=== PATIENT | female | born 1985 | race African-American/Black ===

== ENCOUNTER 2017-09-20 21:14 | Inpatient (IN) | payer OTHER ==
[~2017-09-20] VITALS: Ht 162.6 cm; Wt 87.1 kg
[2017-09-20] MEDS ORDERED: MECLIZINE HCL 12.5 MG TABLET. PO ONE (22:15)
[2017-09-20] MEDS ORDERED: IV NORMAL SALINE 1000ML BAG 1,000 ML IV ONE (22:15)
[2017-09-20] MEDS ORDERED: ONDANSETRON PF 4 MG/2 ML VIAL. IV ONE (22:15)
[2017-09-20 22:21] LABS: BASO % 0 % (0-3); EOS % 1 % (0-3); HEMATOCRIT 38.9 % (36.0-47.0); HEMOGLOBIN 12.7 g/dL (12.0-15.5); LYMPH # 3.1 x10^3/uL (1.0-4.8); LYMPH % 32 % (24-48); MEAN CORPUSCULAR HEMOGLOBIN 25 pg (25-35); MEAN CORPUSCULAR HGB CONC 33 g/dL (31-37); MEAN CORPUSCULAR VOLUME 76 fL (79-100); MONO % 11 % (0-9); NEUT % 57 % (31-73); PLATELET COUNT 306 x10^3/uL (140-400); RED BLOOD COUNT 5.12 x10^6/uL (3.50-5.40); RED CELL DISTRIBUTION WIDTH 13.5 % (11.5-14.5); WHITE BLOOD COUNT 9.8 x10^3/uL (4.0-11.0)
[2017-09-20 22:21] LABS: BILIRUBIN,URINE NEGATIVE (NEG); GLUCOSE,URINE NEGATIVE (NEG); NITRITE,URINE NEGATIVE (NEG); PROTEIN,URINE NEGATIVE (NEG-TRACE)
[2017-09-20 22:26] LABS: BACTERIA,URINE FEW /HPF (0-FEW); RBC,URINE 0 /HPF (0-2); SQUAMOUS EPITHELIAL CELL,UR MOD /LPF; WBC,URINE OCC /HPF (0-4)
--- NOTE | 2017-09-20 22:29 | PHYS DOC ---
Past Medical History Past Medical History: Anxiety, Depression, Schizophrenia Past Surgical History: Alcohol Use: Occasionally Drug Use: None Adult General Chief Complaint Chief Complaint: DIZZY/LIGHT HEADED HPI HPI Patient is a 32 year old F who presents with dizziness for the past 2 days. Patient states that the room has been spinning for the past 2 days and is episodic. Patient states that it's worse when she goes from a sitting to a standing position. Patient states it's better when she lays down. Patient is never had symptoms of this before. Patient denies any fevers. Patient denies any headaches. Patient appears of nausea with no vomiting. Patient denies any chest pain or shortness of breath. Patient has no other complaints. Review of Systems Review of Systems GEN: Denies fevers, chills, sweats HEENT: Denies blurred vision, sore throat CV: Denies chest pain RESP: Denies shortness of air, cough GI: Denies n/v/d NEURO: Dizziness MSK: Denies weakness, joint pain/swelling Current Medications Current Medications Current Medications Medications (Trade) Dose Ordered Sig/Caitlin Start Time Stop Time Status Last Admin Dose Admin Meclizine HCl (Antivert) 25 mg 1X ONCE 09/20/17 22:15 09/20/17 22:16 DC 09/20/17 22:25 25 MG Ondansetron HCl (Zofran) 4 mg 1X ONCE 09/20/17 22:15 09/20/17 22:16 DC 09/20/17 22:25 4 MG Sodium Chloride 1,000 ml @ 1,000 mls/hr 1X ONCE 09/20/17 22:15 09/20/17 23:14 09/20/17 22:25 1,000 MLS/HR Allergies Allergies Allergies Coded Allergies Type Severity Reaction Last Updated Verified amoxicillin Allergy Intermediate Unknown 09/28/15 Yes Physical Exam Physical Exam GEN.: No apparent distress. Alert and oriented. HEENT: Head is normocephalic, atraumatic NECK: Supple. LUNGS: CTAB. HEART: RRR, S1, S2 present. Peripheral pulses intact ABDOMEN: Soft, nontender. Positive bowel sounds. EXTREMITIES: Without any cyanosis. NEUROLOGIC: Normal speech, normal tone, cranial nerves II through XII are grossly intact without any focal neurological deficits PSYCHIATRIC: Normal affect, normal mood. SKIN: No ulcerations Current Patient Data Vital Signs Vital Signs Date Time Temp Pulse Resp B/P (MAP) Pulse Ox O2 Delivery O2 Flow Rate FiO2 09/20/17 21:35 98.4 91 18 126/72 (90) 99 Room Air 98.4 Lab Values Laboratory Tests Test 09/20/17 21:24 09/20/17 21:30 09/20/17 21:38 Urine Collection Type Unknown Urine Color Yellow Urine Clarity Clear Urine pH 6.0 Urine Specific [place] >=1.030 Urine Protein Negative mg/dL (NEG-TRACE) Urine Glucose (UA) Negative mg/dL (NEG) Urine Ketones (Stick) Negative mg/dL (NEG) Urine Blood Negative (NEG) Urine Nitrite Negative (NEG) Urine Bilirubin Negative (NEG) Urine Urobilinogen Dipstick 1.0 mg/dL (0.2 mg/dL) Urine Leukocyte Esterase Negative (NEG) Urine RBC 0 /HPF (0-2) Urine WBC Occ /HPF (0-4) Urine Squamous Epithelial Cells Mod /LPF Urine Bacteria Few /HPF (0-FEW) Urine Mucus Marked /LPF POC Urine HCG, Qualitative Hcg negative (Negative) White Blood Count 9.8 x10^3/uL (4.0-11.0) Red Blood Count 5.12 x10^6/uL (3.50-5.40) Hemoglobin 12.7 g/dL (12.0-15.5) Hematocrit 38.9 % (36.0-47.0) Mean Corpuscular Volume 76 fL (79-100) L Mean Corpuscular Hemoglobin 25 pg (25-35) Mean Corpuscular Hemoglobin Concent 33 g/dL (31-37) Red Cell Distribution Width 13.5 % (11.5-14.5) Platelet Count 306 x10^3/uL (140-400) Neutrophils (%) (Auto) 57 % (31-73) Lymphocytes (%) (Auto) 32 % (24-48) Monocytes (%) (Auto) 11 % (0-9) H Eosinophils (%) (Auto) 1 % (0-3) Basophils (%) (Auto) 0 % (0-3) Neutrophils # (Auto) 5.6 x10^3uL (1.8-7.7) Lymphocytes # (Auto) 3.1 x10^3/uL (1.0-4.8) Monocytes # (Auto) 1.0 x10^3/uL (0.0-1.1) Eosinophils # (Auto) 0.1 x10^3/uL (0.0-0.7) Basophils # (Auto) 0.0 x10^3/uL (0.0-0.2) Sodium Level 141 mmol/L (136-145) Potassium Level 3.7 mmol/L (3.5-5.1) Chloride Level 103 mmol/L (98-107) Carbon Dioxide Level 28 mmol/L (21-32) Anion Gap 10 (6-14) Blood Urea Nitrogen 11 mg/dL (7-20) Creatinine 0.7 mg/dL (0.6-1.0) Estimated GFR (Cockcroft-Gault) 117.3 BUN/Creatinine Ratio 16 (6-20) Glucose Level 109 mg/dL (70-99) H Calcium Level 9.0 mg/dL (8.5-10.1) Total Bilirubin 0.3 mg/dL (0.2-1.0) Aspartate Amino Transferase (AST) 25 U/L (15-37) Alanine Aminotransferase (ALT) 47 U/L (14-59) Alkaline Phosphatase 83 U/L (46-116) Troponin I Quantitative < 0.017 ng/mL (0.000-0.055) Total Protein 7.9 g/dL (6.4-8.2) Albumin 3.5 g/dL (3.4-5.0) Albumin/Globulin Ratio 0.8 (1.0-1.7) L Laboratory Tests 09/20/17 21:38 Laboratory Tests 09/20/17 21:38 EKG EKG 2134: EKG shows normal sinus rhythm rate of 93 no STEMI[] Radiology/Procedures Radiology/Procedures CT scan of the head without contrast: Impression: No evidence of acute intracranial abnormality. Consider outpatient MR brain for further workup, particularly if symptoms persist. [] Course & Med Decision Making Course & Med Decision Making Pertinent Labs and Imaging studies reviewed. (See chart for details) ED course: Patient was seen and examined emergency room CBC, CMP, UA, EKG, CT scan of the head without contrast were ordered 2300: Attempted to ambulate patient down the zafar and she had difficulty walking secondary to severe dizziness 2308: Discussed CC/HP/PMH with Dr. Keyes and recommends admit MDM: After reviewing the chart, CC/HPI/PMH, physical exam, [lab results], [ radiological results], I do not believe the patient having an acute CVA however has concerns that she has persistent dizziness as difficulty walking therefore will admit for further evaluation and management. [] [] Dragon Disclaimer Dragon Disclaimer This electronic medical record was generated, in whole or in part, using a voice recognition dictation system. Departure Departure Impression: Primary Impression: Dizziness Disposition: ADMITTED INPATIENT Admitting Physician: Other (Dr. Keyes) Condition: STABLE Referrals: ARAMIS MENDOZA MD (PCP) DESIRE JENSEN DO Sep 20, 2017 22:29
[2017-09-20 22:30] LABS: CREATININE 0.7 mg/dL (0.6-1.0); GFR 117.3; POTASSIUM 3.7 mmol/L (3.5-5.1)
[2017-09-20 22:36] LABS: ALBUMIN 3.5 g/dL (3.4-5.0); ALBUMIN/GLOBULIN RATIO 0.8 (1.0-1.7); TOTAL BILIRUBIN 0.3 mg/dL (0.2-1.0); TOTAL PROTEIN 7.9 g/dL (6.4-8.2)
--- NOTE | 2017-09-20 22:47 | RAD ---
CT of the head without contrast History:dizziness Technique: Standard noncontrast images are obtained. Exposure: One or more of the following individualized dose reduction techniques were utilized for this examination: 1. Automated exposure control 2. Adjustment of the mA and/or kV according to patient size 3. Use of iterative reconstruction technique. Comparison: None Findings: Posterior fossa is unremarkable. No evidence of acute intracranial hemorrhage, mass effect, midline shift or abnormal extra-axial fluid collection. Conley-white matter distinction is intact. Ventricles unremarkable and symmetric Visualized orbits are unremarkable. Visualized paranasal sinuses and mastoids are clear. No acute calvarial abnormality Impression: No evidence of acute intracranial abnormality. Consider outpatient MR brain for further workup, particularly if symptoms persist. Electronically signed by: Kevin Wilkins MD (09/20/2017 10:43 PM) [facility]
[2017-09-21] MEDS ORDERED: MECLIZINE HCL 12.5 MG TABLET. PO PRN (00:15)
[2017-09-21] MEDS ORDERED: ONDANSETRON PF 4 MG/2 ML VIAL. IV PRN (00:15)
[2017-09-21 00:30] VITALS: BP 109/66
--- NOTE | 2017-09-21 00:47 | HP ---
ADMIT DATE: 09/21/2017 CHIEF COMPLAINT: Dizziness. HISTORY OF PRESENT ILLNESS: The patient is a 32-year-old -[place] woman with past medical history of anxiety, depression, schizophrenia, who presented with dizziness for the past 2 days. She relates that she woke up on Friday morning, and when she got up from the lying position to sitting, she became very dizzy. She relates this feels like she is going on a [id number], room spinning around her. This actually affects her ability to walk as well. She denies any headaches, any ear aches, stuffy nose, sore throat, or other URI symptoms. The dizziness was so severe that she actually has nausea without any vomiting, and is unable to walk. In the Emergency Room, workup was essentially negative, but she continues to be very symptomatic and is therefore admitted. PAST MEDICAL HISTORY: Anxiety, depression, schizophrenia, fibromyalgia. FAMILY HISTORY: Heart disease on paternal grandmother. Distant relatives with diabetes as well. SOCIAL HISTORY: Lives with her children. Quit smoking, no toxic habits. ALLERGIES: AMOXICILLIN. MEDICATIONS: MAR reconciled with home medications. REVIEW OF SYSTEMS: Positive as per HPI. Rest of organ system review is negative. PHYSICAL EXAMINATION: VITAL SIGNS: Show a blood pressure of 126/72, heart rate of 91, respiratory rate at 18. She is afebrile. GENERAL: This is an obese 32-year-old -[place] woman, alert and oriented, no acute distress. LUNGS: Clear. HEART: Has regular rate and rhythm. ABDOMEN: Has positive bowel sounds, soft, nontender. EXTREMITIES: Show no edema. NEUROLOGIC: Shows no abnormality in Cranial nerves 2-12. Muscle strength is 5/5 throughout. LABORATORY DATA: CBC with a WBC of 9.8, hemoglobin 12.7, platelets of 306, MCV is 76. Chemistries with a BUN and creatinine of 11 and 0.7, normal electrolytes, normal LFTs. Urine, no sign of infection. IMAGING: CT of head with no evidence of acute intracranial abnormality. ASSESSMENT AND PLAN: The patient is a 32-year-old woman with signs consistent with benign positional vertigo. This apparently affects her moving from lying to upright position. We will continue meclizine for the time being. We will obtain neurological consult. May need a tilt table procedure. We will continue all her home medications for the time being. SUSSY BORGES MD DR: Collins JOB#: [id number] / [id number] VINAY
[2017-09-21 03:39] VITALS: BP 103/65
[2017-09-21 07:00] VITALS: BP 107/59
[2017-09-21] MEDS ORDERED: oxyCODONE/APAP 5/325 1 TAB TABLET PO PRN (08:45)
[2017-09-21 10:58] VITALS: BP 117/75
[2017-09-21] MEDS ORDERED: POLY17PO29 PO (11:49)
[2017-09-21] MEDS ORDERED: SERT100T PO (11:51)
--- NOTE | 2017-09-21 12:10 | EKG ---
[facility] [address] [place] [address] Test Date: 2017-09-20 Test Time: 21:34:49 Pat Name: CHAD TURNER Department: Room: Gender: F [employer] Supervisor: : 1985 Requested By: DESIRE JENSEN Order Number: [id number] Reading MD: Measurements Intervals [place] Rate: 93 P: 45 MT: 178 QRS: -6 QRSD: 86 T: 25 QT: 360 QTc: 450 Interpretive Statements SINUS RHYTHM LEFTWARD AXIS NON SPECIFIC T ABNORMALITY RI6.01 Unconfirmed report No previous ECG available for comparison
[2017-09-21] MEDS ORDERED: MECL12.52 PO (12:58)
[2017-09-21] MEDS ORDERED: SERTRALINE 50 MG TABLET. PO SCH (13:00)
[2017-09-21] MEDS ORDERED: POLYETHYLENE GLYCOL 3350 17 GM PACKET. PO SCH (13:00)
[2017-09-21 14:22] VITALS: BP 114/72
--- NOTE | 2017-09-21 15:26 | PDOC3 ---
Discharge Summary Visit Information Date of Admission: Sep 20, 2017 Date of Discharge: Sep 21, 2017 Admitting Diagnosis: dizzy Final Diagnosis Benign positional paroxysmal vertigo depression obesity dizzy, positional Problems Medical Problems: (1) Dizziness Status: Acute Brief Hospital Course Allergies Allergies Coded Allergies Type Severity Reaction Last Updated Verified amoxicillin Allergy Intermediate Unknown 09/28/15 Yes Vital Signs Vital Signs Date Time Temp Pulse Resp B/P (MAP) Pulse Ox O2 Delivery O2 Flow Rate FiO2 09/21/17 14:22 98.2 79 19 114/72 (86) 96 Room Air 98.2 Lab Results Laboratory Tests Test 09/20/17 21:24 09/20/17 21:30 09/20/17 21:38 Urine Collection Type Unknown Urine Color Yellow Urine Clarity Clear Urine pH 6.0 Urine Specific [place] >=1.030 Urine Protein Negative mg/dL (NEG-TRACE) Urine Glucose (UA) Negative mg/dL (NEG) Urine Ketones (Stick) Negative mg/dL (NEG) Urine Blood Negative (NEG) Urine Nitrite Negative (NEG) Urine Bilirubin Negative (NEG) Urine Urobilinogen Dipstick 1.0 mg/dL (0.2 mg/dL) Urine Leukocyte Esterase Negative (NEG) Urine RBC 0 /HPF (0-2) Urine WBC Occ /HPF (0-4) Urine Squamous Epithelial Cells Mod /LPF Urine Bacteria Few /HPF (0-FEW) Urine Mucus Marked /LPF Bedside Urine HCG, Qualitative Hcg negative (Negative) White Blood Count 9.8 x10^3/uL (4.0-11.0) Red Blood Count 5.12 x10^6/uL (3.50-5.40) Hemoglobin 12.7 g/dL (12.0-15.5) Hematocrit 38.9 % (36.0-47.0) Mean Corpuscular Volume 76 fL (79-100) Mean Corpuscular Hemoglobin 25 pg (25-35) Mean Corpuscular Hemoglobin Concent 33 g/dL (31-37) Red Cell Distribution Width 13.5 % (11.5-14.5) Platelet Count 306 x10^3/uL (140-400) Neutrophils (%) (Auto) 57 % (31-73) Lymphocytes (%) (Auto) 32 % (24-48) Monocytes (%) (Auto) 11 % (0-9) Eosinophils (%) (Auto) 1 % (0-3) Basophils (%) (Auto) 0 % (0-3) Neutrophils # (Auto) 5.6 x10^3uL (1.8-7.7) Lymphocytes # (Auto) 3.1 x10^3/uL (1.0-4.8) Monocytes # (Auto) 1.0 x10^3/uL (0.0-1.1) Eosinophils # (Auto) 0.1 x10^3/uL (0.0-0.7) Basophils # (Auto) 0.0 x10^3/uL (0.0-0.2) Sodium Level 141 mmol/L (136-145) Potassium Level 3.7 mmol/L (3.5-5.1) Chloride Level 103 mmol/L (98-107) Carbon Dioxide Level 28 mmol/L (21-32) Anion Gap 10 (6-14) Blood Urea Nitrogen 11 mg/dL (7-20) Creatinine 0.7 mg/dL (0.6-1.0) Estimated GFR (Cockcroft-Gault) 117.3 BUN/Creatinine Ratio 16 (6-20) Glucose Level 109 mg/dL (70-99) Calcium Level 9.0 mg/dL (8.5-10.1) Total Bilirubin 0.3 mg/dL (0.2-1.0) Aspartate Amino Transf (AST/SGOT) 25 U/L (15-37) Alanine Aminotransferase (ALT/SGPT) 47 U/L (14-59) Alkaline Phosphatase 83 U/L (46-116) Troponin I Quantitative < 0.017 ng/mL (0.000-0.055) Total Protein 7.9 g/dL (6.4-8.2) Albumin 3.5 g/dL (3.4-5.0) Albumin/Globulin Ratio 0.8 (1.0-1.7) Laboratory Tests Test 09/20/17 21:24 09/20/17 21:30 09/20/17 21:38 Urine Collection Type Unknown Urine Color Yellow Urine Clarity Clear Urine pH 6.0 Urine Specific [place] >=1.030 Urine Protein Negative mg/dL (NEG-TRACE) Urine Glucose (UA) Negative mg/dL (NEG) Urine Ketones (Stick) Negative mg/dL (NEG) Urine Blood Negative (NEG) Urine Nitrite Negative (NEG) Urine Bilirubin Negative (NEG) Urine Urobilinogen Dipstick 1.0 mg/dL (0.2 mg/dL) Urine Leukocyte Esterase Negative (NEG) Urine RBC 0 /HPF (0-2) Urine WBC Occ /HPF (0-4) Urine Squamous Epithelial Cells Mod /LPF Urine Bacteria Few /HPF (0-FEW) Urine Mucus Marked /LPF Bedside Urine HCG, Qualitative Hcg negative (Negative) White Blood Count 9.8 x10^3/uL (4.0-11.0) Red Blood Count 5.12 x10^6/uL (3.50-5.40) Hemoglobin 12.7 g/dL (12.0-15.5) Hematocrit 38.9 % (36.0-47.0) Mean Corpuscular Volume 76 fL (79-100) Mean Corpuscular Hemoglobin 25 pg (25-35) Mean Corpuscular Hemoglobin Concent 33 g/dL (31-37) Red Cell Distribution Width 13.5 % (11.5-14.5) Platelet Count 306 x10^3/uL (140-400) Neutrophils (%) (Auto) 57 % (31-73) Lymphocytes (%) (Auto) 32 % (24-48) Monocytes (%) (Auto) 11 % (0-9) Eosinophils (%) (Auto) 1 % (0-3) Basophils (%) (Auto) 0 % (0-3) Neutrophils # (Auto) 5.6 x10^3uL (1.8-7.7) Lymphocytes # (Auto) 3.1 x10^3/uL (1.0-4.8) Monocytes # (Auto) 1.0 x10^3/uL (0.0-1.1) Eosinophils # (Auto) 0.1 x10^3/uL (0.0-0.7) Basophils # (Auto) 0.0 x10^3/uL (0.0-0.2) Sodium Level 141 mmol/L (136-145) Potassium Level 3.7 mmol/L (3.5-5.1) Chloride Level 103 mmol/L (98-107) Carbon Dioxide Level 28 mmol/L (21-32) Anion Gap 10 (6-14) Blood Urea Nitrogen 11 mg/dL (7-20) Creatinine 0.7 mg/dL (0.6-1.0) Estimated GFR (Cockcroft-Gault) 117.3 BUN/Creatinine Ratio 16 (6-20) Glucose Level 109 mg/dL (70-99) Calcium Level 9.0 mg/dL (8.5-10.1) Total Bilirubin 0.3 mg/dL (0.2-1.0) Aspartate Amino Transf (AST/SGOT) 25 U/L (15-37) Alanine Aminotransferase (ALT/SGPT) 47 U/L (14-59) Alkaline Phosphatase 83 U/L (46-116) Troponin I Quantitative < 0.017 ng/mL (0.000-0.055) Total Protein 7.9 g/dL (6.4-8.2) Albumin 3.5 g/dL (3.4-5.0) Albumin/Globulin Ratio 0.8 (1.0-1.7) Brief Hospital Course Ms. Murray is a 32 old female, admit due to dizzy, worse when lying on right side, better in AM DC to primary care, Meclizine PRN education on maneuvers if recurs provided by me, handout given Discharge Information Condition at Discharge: Improved Follow Up: Weeks Disposition/Orders: D/C to Home Scheduled Polyethylene Glycol 3350 (Miralax), 1 PACKET PO DAILY, (Reported) Sertraline Hcl (Zoloft), 1 TAB PO DAILY, (Reported) Scheduled PRN Meclizine Hcl (Meclizine Hcl), 12.5 MG PO PRN TID PRN for vertigo Patient Instructions Patient Instructions > 30 min GENEVIEVE DAVIS MD Sep 21, 2017 15:26
[2017-09-21] MEDS ORDERED: ACETAMINOPHEN 325 MG TABLET. PO PRN (15:30)
== END 2017-09-21 16:00 | disposition home or self-care (01) | DRG 149 ==
LOC: ER 21:14 → 6 SOUTH 23:05
PROVIDERS: ADMIT Internal Medicine Hematology & Oncology; ATTEND Internal Medicine Hematology & Oncology
DX: H81.10 Benign paroxysmal vertigo, unspecified ear (principal); F20.9 Schizophrenia, unspecified; E66.9 Obesity, unspecified; Z68.33 Body mass index [BMI] 33.0-33.9, adult; F32.9 Major depressive disorder, single episode, unspecified; M79.7 Fibromyalgia; Z83.3 Family history of diabetes mellitus; F41.9 Anxiety disorder, unspecified; Z88.1 Allergy status to other antibiotic agents; Z87.891 Personal history of nicotine dependence
CPT/HCPCS: 36415; 70450; 80053; 81001; 81025; 84484; 85025; 93005; 96361; 96374; J2405; J7030; J8597; 99285-25

== ENCOUNTER 2021-12-03 18:13 | Emergency (ER) | payer MEDICAID, OTHER ==
[~2021-12-03] VITALS: Ht 162.6 cm; Wt 106.8 kg
[~2021-12-03 18:13] MED LIST: MECL12.582 PO; POLY17PO29 PO; SERT100T PO
--- NOTE | 2021-12-04 00:28 | RAD ---
EXAM: AP View of the chest DATE: 12/03/2021 12:04 AM INDICATION: Reason: fever / Spl. Instructions: / History: COMPARISON: No Prior FINDINGS: The heart is not enlarged. Mediastinal and hilar contours are normal. No focal parenchymal airspace opacity. No pleural effusion or pneumothorax. IMPRESSION: 1. No radiographic evidence for acute cardiopulmonary process. Electronically signed by: José Mazariegos MD (12/04/2021 12:26 AM) [facility]
--- NOTE | 2021-12-04 00:33 | PHYS DOC ---
Past Medical History Past Medical History: Anxiety, Depression, Hypertension, Schizophrenia Additional Past Medical Histor: sleep apena, PTSD (INESSA GOLDSTEIN GIS SCIENTIST) Past Surgical History: (INESSA GOLDSTEIN GIS SCIENTIST) Smoking Status: Never Smoker Alcohol Use: None Drug Use: None (INESSA GOLDSTEIN GIS SCIENTIST) General Adult EDM: Chief Complaint: COUGH HPI: HPI: Patient is a 36 year old female with history of depression, anxiety, hypertension, who presents to the ED today complaining of sore throat and nonproductive cough, symptoms began yesterday. Patient denies any fever. Denies any difficulty swallowing. Reports receiving [employer] vaccine last dose in May 2021 (INESSA GOLDSTEIN GIS SCIENTIST) Review of Systems: Review of Systems: Constitutional: Low thank you Eyes: Denies change in visual acuity. [] HENT: Reports sore throat Respiratory: Reports cough, denies shortness of breath Cardiovascular: Denies chest pain or edema. [] GI: Denies abdominal pain, nausea, vomiting, bloody stools or diarrhea. [] : Denies dysuria. [] Musculoskeletal: Denies back pain or joint pain. [] Integument: Denies rash. [] Neurologic: Denies headache, focal weakness or sensory changes. [] Psychiatric: Denies depression or anxiety. [] (INESSA GOLDSTEIN ) Heart Score: C/O Chest Pain: N/A Risk Factors: Risk Factors: DM, Current or recent (<one month) smoker, HTN, HLP, family history of CAD, obesity. Risk Scores: Score 0 - 3: 2.5% MACE over next 6 weeks - Discharge Home Score 4 - 6: 20.3% MACE over next 6 weeks - Admit for Clinical Observation Score 7 - 10: 72.7% MACE over next 6 weeks - Early Invasive Strategies (INESSA GOLDSTEIN ) Current Medications: Current Medications Medications (Trade) Dose Ordered Sig/Caitlin Start Time Stop Time Status Last Admin Dose Admin Acetaminophen (Tylenol) 1,000 mg 1X ONCE 12/04/21 00:30 12/04/21 00:31 Clonidine HCl (Catapres) 0.2 mg 1X ONCE 12/04/21 00:30 12/04/21 00:31 Dexamethasone Sodium Phosphate (Decadron) 10 mg 1X ONCE 12/04/21 00:30 1/4/22 00:31 Lidocaine HCl (Viscous Lidocaine) 15 ml 1X ONCE 12/04/21 00:30 12/04/21 00:31 (INESSA GOLDSTEIN GIS SCIENTIST) Allergies: Allergies: Allergies Coded Allergies Type Severity Reaction Last Updated Verified amoxicillin Allergy Intermediate 12/03/21 Yes (INESSA GOLDSTEIN GIS SCIENTIST) Physical Exam: PE: Constitutional: Well developed, well nourished, no acute distress, non-toxic appearance. [] HENT: Normocephalic, atraumatic, bilateral external ears normal, oropharynx moist, no oral exudates, nose normal. Airway is open. Eyes: PERRLA, EOMI, conjunctiva normal, no discharge. [] Neck: Normal range of motion, no tenderness, supple, no stridor. [] Cardiovascular:Heart rate regular rhythm, no murmur [] Lungs & Thorax: Bilateral breath sounds clear to auscultation [] Abdomen: Bowel sounds normal, soft, no tenderness, no masses, no pulsatile ma sses. [] Skin: Warm, dry, no erythema, no rash. [] Back: No tenderness, no CVA tenderness. [] Extremities: No tenderness, no cyanosis, no clubbing, ROM intact, no edema. [] Neurologic: Alert and oriented X 3, normal motor function, normal sensory function, no focal deficits noted. [] Psychologic: Affect normal, judgement normal, mood normal. [] (INESSA GOLDSTEIN GIS SCIENTIST) Current Patient Data: Vital Signs: Vital Signs Date Time Temp Pulse Resp B/P (MAP) Pulse Ox O2 Delivery O2 Flow Rate FiO2 12/03/21 23:30 100.1 117 18 190/104 (132) 99 100.1 (INESSA GOLDSTEIN GIS SCIENTIST) EKG: EKG: [] (INESSA GOLDSTEIN GIS SCIENTIST) Radiology/Procedures: Radiology/Procedures: []PROCEDURE: CHEST AP ONLY EXAM: AP View of the chest DATE: 12/03/2021 12:04 AM INDICATION: Reason: fever / Spl. Instructions: / History: COMPARISON: No Prior FINDINGS: The heart is not enlarged. Mediastinal and hilar contours are normal. No focal parenchymal airspace opacity. No pleural effusion or pneumothorax. IMPRESSION: 1. No radiographic evidence for acute cardiopulmonary process. Electronically signed by: José Ibarra MD (12/04/2021 12:26 AM) [facility] DICTATED and SIGNED BY: JOSÉ IBARRA MD DATE: 12/04/21 [id number] (INESSA GOLDSTEIN APRN) Course & Med Decision Making: Course & Med Decision Making Pertinent Labs and Imaging studies reviewed. (See chart for details) This is a 36-year-old female patient presented to the ED today complaining of sore throat and a cough, symptoms began yesterday. Temperature in the ED 100.1-was given Tylenol, heart rate 117 with blood pressur e 190/104, history of hypertension, states she did not take any of her blood pressure medicines today. O2 sats 99% on room air Chest x-ray is negative for any acute findings. [address] Gr (INESSA GOLDSTEIN APRN) Course & Med Decision Making This patient was initially seen by the nurse practitioner. She had reported that she was transferring care to [place] after she gave the patient dexamethasone and p.o. clonidine for asymptomatic hypertension. The patient was awaiting COVID-19 testing, COVID-19 testing came back positive, which was expected given her symptoms. The nurse practitioner did not consult with me before giving the patient dexamethasone or clonidine. I do not agree with this regimen. The radha roper has known hypertension, had not taken her blood pressure medicine. The nurse practitioner show me that the patient reportedly normally takes amlodipine, and I asked why perhaps she had not offered her to give her dose of her regular home medication. She felt that she should treat the hypertension number. I was informed that the patient has no symptoms of chest pain, dyspnea or headache or any focal neurologic abnormalities, thus making the hypertension asymptomatic, based on the explanation given to me. I explained dangerousness of this type of practice, I explained that giving clonidine especially a dose of 0.2 mg could be potentially quite dangerous can lead to profound hypotension and hemodynamic compromise. I wanted to check the patient's blood pressure again before she left, but the patient eloped prior to my ability to evaluate her. She did not want to stay for any further evaluation or treatment. (FRANCE GR DO) Dragon Disclaimer: Dragon Disclaimer: This electronic medical record was generated, in whole or in part, using a voice recognition dictation system. (INSESA GOLDSTEIN APRN) Departure Departure Impression: Primary Impression: Fever Qualified Codes: R50.9 - Fever, unspecified Additional Impression: COVID-19 Referrals: ARAMIS MENDOZA MD (PCP) INESSA GOLDSTEIN APRN Dec 04, 2021 00:33 FRANCE GR DO Dec 06, 2021 07:49
[2021-12-04] MEDS: DEXAMETHASONE SOD PHOS 20 MG/5 ML VIAL. IM ONE (00:43)
[2021-12-04] MEDS: cloNIDine HCL 0.1 MG TABLET PO ONE (00:45)
[2021-12-04] MEDS: ACETAMINOPHEN 500 MG TABLET PO ONE (00:46)
[2021-12-04] MEDS: LIDOCAINE 2% VISCOUS 15 ML SOLUTION. SWSW ONE (00:47)
[2021-12-04 00:53] VITALS: BP 192/104
[2021-12-04 01:45] LABS: INFLUENZA A PATIENT NEGATIVE (NEGATIVE); INFLUENZA B PATIENT NEGATIVE (NEGATIVE)
--- NOTE | 2021-12-04 10:50 | NUR ---
IP: Informed pt of positive covid test and the need to quarantine for 10 days. Pt verbalized understanding.
== END 2021-12-04 01:42 | disposition home or self-care (01) ==
LOC: ER 18:13
DX: U07.1 COVID-19 (principal); I10 Essential (primary) hypertension; F20.9 Schizophrenia, unspecified; F43.10 Post-traumatic stress disorder, unspecified; Z88.1 Allergy status to other antibiotic agents
CPT/HCPCS: 71045; 87426; 87804; 96372; 99284; J1100